=== PATIENT | female | born 1985 | race Caucasian/White ===

== ENCOUNTER 2023-08-19 01:44 | Inpatient (IN) ==
[2023-08-19] MEDS ORDERED: LIDOCAINE 1% LOCAL 20 ML VIAL INFIL PRN (02:14)
--- NOTE | 2023-08-19 02:20 | History & Physical Report ---
Date of Service August 19, 2023 Assessment & Plan (1) GBS (group B Streptococcus carrier), +RV culture, currently : (2) Gestational diabetes mellitus (GDM): Plan 38 yo at 40 4/7 wga presents in labor VSS - BP noted, pt very painful, will get labs w/ admit labs Fetus cat 1 Labor - SVE slightly progressed but rosalina q2-3 min so appears in labor. SSE is suspicious for rom as well. GDM - bg q4, q2 in active labor GBS+, pcn ordered desires epidural History of Present Illness Chief Complaint: ctx, ?lof Primary Care Provider: Kayli Tuttle MD 38 yo at 40 4/7 wga presents with ctx increasing in frequency and intensity. Had membranes stripped in office today. Was rosalina q5-6 min, Noted gush of fluid around 1230-1am and ctx worsened after that. Now q2-3 and much more uncomfortable. +FM; denies VB PNI: A1GDM GBS+ AMA Past ACUTE CARE ASSISTANT Hx: G1 2021 sab G2 current regular cycles denies hx stis Allergies Allergy/AdvReac Type Severity Reaction Status Date / Time No Known Drug Allergies Allergy Unknown Verified 08/19/23 02:14 Home Medications Medication Instructions Recorded Confirmed Type vit 168-iron 27 mg-folic 1 cap PO DAILY 12/30/22 08/19/23 History acid 800 mcg-omega3 235 mg capsule (One-A-Day -1) albuterol sulfate 90 mcg/actuation 1 inh inhalation QID PRN shortness 04/04/23 08/19/23 Rx aerosol inhaler of breath or wheezing #8.5 grams ascorbic acid (vitamin C) 500 mg 500 mg PO DAILY 04/04/23 08/19/23 History capsule RSV vac, preF A and preF B(PF) 120 0.5 ml IM ONCE #1 ea 06/23/23 08/18/23 Rx mcg/0.5 mL IM solution (Abrysvo) lancets 33 gauge (OneTouch Delica #150 ea 07/14/23 08/18/23 Rx Plus Lancet) blood-glucose meter (OneTouch #1 ea 07/18/23 08/18/23 Rx Verio Reflect kit) Patient History Medical History Well woman exam with routine gynecological exam Low grade squamous intraepithelial lesion (LGSIL) on cervical Pap smear BCP ( control pills) initiation Vaginal candidiasis Urinary tract infection Metrorrhagia Dyslipidemia Cervical dysplasia Bacterial vaginosis ADHD Mild intermittent asthma LGSIL on Pap smear of cervix Anemia Surgical History S/P dilatation and curettage S/P wisdom tooth extraction No pertinent past surgical history Family History (Updated 04/04/23 @ 08:09 by ELDA Vincent) Grandmother (Paternal) Colorectal cancer Family/Other Myocardial infarction Other Dyslipidemia Hypertension Thyroid disorder Denies family history of Ovarian cancer Prostate cancer Breast cancer Social History (Updated 04/04/23 @ 08:10 by ELDA Vincent) Smoking Status: Never smoker Second Hand Exposure: No; Do You Dip or Chew Tobacco: No; Hx Alcohol Use: Yes (socially) Hx Substance Use: No Preferred Language: Croatian Visual Impairment: No Limitations marital status: Single marital status details: Ben (45) [phone] Current Living Situation: Significant Other Current Living Situation Comment: lives with FOB, no pets 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 Feels Safe at Home: Yes Childhood Exposure to Second-Hand Smoke: No Dental Care, Regularly: Yes Physical Activity Frequency: 5-6 Times per Week Seatbelt Use: always Sunscreen Use: Yes Physical Exam Genitourinary: Manual OB Exam: + cervical dilation (4-5), + cervical effacement 70% and + station -2 OB Exam Monitor Tracing: + external FHT monitor used, + external uterine monitor used (q2-3) and + category I SSE neg pooling, nitrazine equiv, ferning seen Results & Data Vital Signs (Past 12 Hours) Vital Signs Pulse BP 08/19/23 02:02 86 145/91 H Laboratory Results OB Labs: Blood Type A Positive 01/05/23 Antibody Screen NEGATIVE 01/05/23 Hemoglobin 13.9 g/dl (12.0-16.0) 06/02/23 Hematocrit 42.2 % (37.0-47.0) 06/02/23 Mean Corpuscular Volume 86.1 fL (80.0-100.0) 01/05/23 Platelet Count 196 K/uL (130-400) 01/05/23 Rubella IgG Antibody Immune (Immune) 01/05/23 Rapid Plasma Reagin Nonreactive (Nonreactive) 01/05/23 Hepatitis B Surface Antigen. NON-REACTIVE (NON-REACTIVE) 01/05/23 Hepatitis C Antibody (EIA) NON-REACTIVE (NON-REACTIVE) 01/05/23 HIV (1&2) Ag and Ab Confirmation NON-REACTIVE (NON-REACTIVE) 01/05/23 Glucose 1 Hour 50 gm Load 181 mg/dl (70-130) H 03/01/23 Maternal Serum Alpha Fetoprotein 47.7 ng/mL 03/01/23 OB Optional Labs: Chlamydia trachomatis RNA Not Detected (NotDetected) 01/05/23 Neisseria gonorrhoeae RNA Not Detected (NotDetected) 01/05/23 Thyroid Stimulating Hormone (TSH) 2.449 uIu/ml (0.300-4.500) 04/07/23 Alpha Fetoprotein Triple Screen SEE NOTE 03/01/23 Labs Reviewed: afp neg--[facility] panorama low risk--[facility] Horizon 14 neg--[facility] GBS+ Diagnostic Findings 07/21/22 EFW 51%, posterior placenta Coding Level of Care Code None Diagnoses GBS (group B Streptococcus carrier), +RV culture, currently O99.820 Gestational diabetes mellitus (GDM) O24.419
[2023-08-19] MEDS: LACTATED RINGER'S 1,000 ML IV PRN (02:34)
[2023-08-19] MEDS: PENICILLIN GK 6 MU in DEXTROSE 5% 250 ML IV STA (02:44)
[2023-08-19 02:47] LABS: Hematocrit (blood only) 40.5 % (37.0-47.0); Hemoglobin 13.9 g/dl (12.0-16.0); Mean Corpuscular Hemoglobin 29.3 pg (25.0-34.0); Mean Corpuscular Hgb Conc 34.3 g/dL (32.0-36.0); Mean Corpuscular Volume 85.4 fL (80.0-100.0); Mean Platelet Volume 10.5 fL (9.4-12.4); Platelet Count 175 K/uL (130-400); RDW Standard Deviation 43.2 fL (36.4-46.3); Red Blood Count 4.74 M/uL (4.20-5.40); White Blood Count 10.06 K/ul (4.8-10.8)
[2023-08-19 02:59] LABS: Albumin Globulin Ratio 1.3 (0.9-2); Albumin Level 3.8 gm/dl (3.4-5.0); BUN Creatinine Ratio 12.7 (10-20); Bilirubin,Total 0.5 mg/dl (0.2-1.0); Est GFR (African American) 81.4 ml/min; Est GFR (Non-African American) 70.2 ml/min; Potassium 3.9 mmol/L (3.5-5.1); Total Protein 6.8 gm/dl (6.0-8.3)
[2023-08-19] MEDS ORDERED: NALOXONE HCL 1 MG in SODIUM CHLORIDE 0.9% 1,000 ML IV PRN (03:13)
[2023-08-19] MEDS ORDERED: NALBUPHINE HCL 5 MG in SYRINGE 0 ML IV PRN (03:13)
[2023-08-19] MEDS ORDERED: NALOXONE HCL 0.4 MG/1 ML VIAL/CARP IV PRN (03:13)
[2023-08-19] MEDS ORDERED: SODIUM CHLORIDE 0.9% PF INJ 10 ML VIAL EPI PRN (03:13)
[2023-08-19] MEDS ORDERED: fentaNYL citrate PF 100 MCG/2 ML VIAL EPI PRN (03:13)
[2023-08-19] MEDS ORDERED: ePHEDrine sulfate 50 MG/ML AMP IV PRN (03:13)
[2023-08-19] MEDS ORDERED: diphenhydrAMINE 50 MG/ML VIAL IV PRN (03:13)
[2023-08-19] MEDS ORDERED: LIDOCAINE 2% MPF LOCAL 5 ML VIAL EPI PRN (03:13)
[2023-08-19] MEDS ORDERED: fentANYL 2 MCG/ML BUPIVacaine 0.125%-NSS 100ML BAG EPI PRN (03:13)
[2023-08-19] MEDS ORDERED: ROPIVACAINE 0.5% PF 5 MG/ML 20 ML VIAL EPI PRN (03:13)
[2023-08-19] MEDS ORDERED: BUPIVACAINE 0.25% PF 30 ML VIAL EPI PRN (03:13)
--- NOTE | 2023-08-19 03:16 | Anesthesiology Consultation ---
Date of Service August 19, 2023 Assessment & Plan Chart Review Chart Review: Patient NOT seen in Pre Admission Testing and Acceptable Risk for Labor Epidural Consults Requested none ASA ASA2 Proposed Anesthesia Anesthesia Type: Labor Epidural Risk / Benefits Reviewed With: PT / POA / Parent / Guardian, Accepts Plan and Informed Consent Obtained History Height/Weight Height: 5 ft 8 in Weight: 92.986 kg Allergies Allergy/AdvReac Type Severity Reaction Status Date / Time No Known Drug Allergies Allergy Unknown Verified 08/19/23 02:14 Medications Home Medications Medication Instructions Recorded Confirmed Last Taken vit 168-iron 27 mg-folic 1 cap PO DAILY 12/30/22 08/19/23 08/18/23 21:00 acid 800 mcg-omega3 235 mg capsule (One-A-Day -1) albuterol sulfate 90 mcg/actuation 1 inh inhalation QID PRN shortness 04/04/23 08/19/23 Unknown aerosol inhaler of breath or wheezing #8.5 grams ascorbic acid (vitamin C) 500 mg 500 mg PO DAILY 04/04/23 08/19/23 08/18/23 21:00 capsule RSV vac, preF A and preF B(PF) 120 0.5 ml IM ONCE #1 ea 06/23/23 08/18/23 Unknown mcg/0.5 mL IM solution (Abrysvo) lancets 33 gauge (OneTouch Delica #150 ea 07/14/23 08/18/23 Unknown Plus Lancet) blood-glucose meter (OneTouch #1 ea 07/18/23 08/18/23 Unknown Verio Reflect kit) Active Medications Generic Name Dose Route Start Last Admin Trade Name Freq PRN Reason Stop Dose Admin Lactated Ringer's 1,000 mls @ 125 mls/hr 08/19/23 02:14 08/19/23 03:05 Lr IV 08/21/23 02:13 125 mls/hr .Q8H PRN Infusion L&D Protocol Protocol NPO Date Last Intake of Fluids: 08/18/23 Time Last Intake of Fluids: 11:00 Date Last Intake of Solids: 08/18/23 Time Last Intake of Solids: 19:30 Past Medical History Medical History Well woman exam with routine gynecological exam Low grade squamous intraepithelial lesion (LGSIL) on cervical Pap smear BCP ( control pills) initiation Vaginal candidiasis Urinary tract infection Metrorrhagia Dyslipidemia Cervical dysplasia Bacterial vaginosis ADHD Mild intermittent asthma LGSIL on Pap smear of cervix Anemia Exercise / Class Metabolic Activity II 4-5 Yardwork/Stairs/Walk up hill Past Family History Family History (Updated 04/04/23 @ 08:09 by ELDA Vincent) Grandmother (Paternal) Colorectal cancer Family/Other Myocardial infarction Other Dyslipidemia Hypertension Thyroid disorder Denies family history of Ovarian cancer Prostate cancer Breast cancer Past Surgical History Surgical History S/P dilatation and curettage S/P wisdom tooth extraction No pertinent past surgical history Past Anesthesia History No Hx of Anesthesia Complications and No Family Hx of Anesthesia Complications History of PONV No Hx of PONV and No Hx of Motion Sickness Social History Smoking Status: Never smoker Do You Dip or Chew Tobacco: No Hx Alcohol Use: No Hx Substance Use: No substance use type: does not use Review of Systems ROS Unobtainable: All systems reviewed & are unremarkable except as noted in HPI & below Physical Exam Vital Signs Last Vital Signs Temp 36.7 C 08/19/23 02:16 Pulse 86 08/19/23 02:16 Resp 18 08/19/23 02:16 BP 145/91 H 08/19/23 02:16 ENMT Mouth: no TMJ abnormality Thyromental Distance: > or= 3.5 Finger Breadths Mallampati Class: II Neck normal visual inspection and trachea midline; neck extension not limited Respiratory normal respiratory effort Auscultation: lungs clear to auscultation bilaterally Cardiovascular Rate/Rhythm: regular rate and regular rhythm Heart Sounds: no murmur Musculoskeletal Spine: normal cervical ROM Extremities: full ROM of extremities Neurologic moves all extremities Psychiatric Orientation: alert and oriented x 3 Testing Laboratory Results 08/19/23 02:23 08/19/23 02:23
[2023-08-19] MEDS: fentaNYL citrate PF 100 MCG/2 ML VIAL ONE (03:47)
[2023-08-19] MEDS: fentANYL 2 MCG/ML BUPIVacaine 0.125%-NSS 100ML BAG ONE (03:47)
[2023-08-19] MEDS: LIDOCAINE 2%/EPINEPHRINE 1:200,000 20 ML PF ONE (03:48)
[2023-08-19] MEDS: BUPIVACAINE 0.25% PF 30 ML VIAL ONE (03:48)
[2023-08-19] MEDS: PENICILLIN GK 3 MU in DEXTROSE 5% 100 ML IV PRN (06:15)
[2023-08-19] MEDS: OXYTOCIN 30 UNITS/NSS 30 UNITS/500 ML BAG IV PRN (08:10)
--- NOTE | 2023-08-19 08:33 | Delivery Summary ---
Vaginal Delivery Summary Date of Service August 19, 2023 Vaginal Delivery Summary and 2nd Degree LAC PREOPERATIVE DIAGNOSIS: 1. Single intrauterine at 40 4/7 wga 2. Labor 3. A1GDM 4. GBS+ POSTOPERATIVE DIAGNOSIS: 1. Single intrauterine at 40 4/7 wga 2. Labor 3. A1GDM 4. GBS+ 5. Delivered PROCEDURE: 1. Normal spontaneous vaginal delivery. SURGEON: Candy Arteaga MD ANESTHESIA: Epidural. ESTIMATED BLOOD LOSS: 500 mL (majority from sulcal tear) FLUIDS: Continuous LR. URINE OUTPUT: None. COMPLICATIONS: None. CONDITION: Stable. INDICATIONS: 38 yo at 40 4/7 wga presented for evaluation due to contractions and ROM. She was 4-5cm on admission. Penicillin was started for GBS+ status. She received an epidural for pain control. She quickly progressed to complete and desired to push FINDINGS: A viable male , weight pending with Apgars of 8 and 9 at 1 and 5 minutes respectively. SPECIMEN: Cord blood OPERATIVE REPORT: The patient progressed to 10 cm, 100% effaced and +2 station, pushed over intact perineum with anesthesia to deliver a viable male infant, weight and Apgars as above. Head of delivered in RONALDO position. No nuchal cord was present. Body and shoulders were delivered without difficulty. was delivered to maternal abdomen and nursing staff. Delayed cord clamping was performed for 60 seconds. Cord was clamped and cut. Cord blood was obtained. Placenta delivered spontaneously intact with 3-vessel cord. IV oxytocin and fundal massage were given for excellent hemostasis. Vagina, cervix, perineum, and placenta were inspected. A right sulcal tear with arterial bleed was noted and repaired using 3-0 vicryl. Second degree was also repaired using 3-0 vicryl in the usual fashion. There was excellent hemostasis. Sponge and needle counts correct x2. No sponges were left behind. Mother and stable in immediate period. MNP Vaginal Delivery Charge Vaginal Delivery Codes: 98311 global code for the antepartum, delivery, and post- Delivery Type Details: and 2nd Degree LAC
[2023-08-19] MEDS ORDERED: HYDROCORTISONE ACETATE 25 MG SUPP PR PRN (08:57)
[2023-08-19] MEDS ORDERED: bisacodyL 10 MG SUPP PR PRN (08:57)
[2023-08-19] MEDS ORDERED: OXYTOCIN 30 UNITS/NSS 30 UNITS/500 ML BAG IV PRN (08:57)
--- NOTE | 2023-08-19 09:49 | Anesthesia Procedure Note ---
Date of Service August 19, 2023 Anesthesia Post Epidural Note Vital Signs Vital Signs: Temp Pulse Resp BP Pulse Ox 99.0 F 118 H 20 139/93 97 08/19/23 07:10 08/19/23 09:45 08/19/23 09:30 08/19/23 09:45 08/19/23 08:45 Pain Intensity Abdomen: Pain Intensity: 0 Notes Mental Status: alert / awake / arousable and participated in evaluation Nausea / Vomiting: adequately controlled Pain: adequately controlled Airway Patency, RR, SpO2: stable & adequate BP & HR: stable & adequate Hydration State: stable & adequate Neuraxial Anesthesia: was administered and sensory block is resolving Anesthetic Complications: no major complications apparent and Pt Satisfied with anesthetic care Epidural: Removed without complications and With tip intact
[2023-08-19] MEDS: IBUPROFEN 600 MG TAB PO PRN (10:09)
[2023-08-19] MEDS: ePHEDrine sulfate 50 MG/ML AMP ONE (10:10)
[2023-08-19] MEDS: SODIUM CHLORIDE 0.9% PF INJ 10 ML VIAL ONE (10:10)
[2023-08-19] MEDS: BENZOCAINE 20% SPRY 85 APPLN/85 GM CAN EXT PRN (10:11)
[2023-08-19] MEDS: ACETAMINOPHEN 325 MG TAB PO PRN (12:25)
[2023-08-19] MEDS: DOCUSATE SODIUM 100 MG CAP PO SCH (20:44)
[2023-08-19] MEDS: BUPIVACAINE 0.25% PF 30 ML VIAL EPI STA (21:42)
[2023-08-19] MEDS: DIPHTHER/TETAN/PERTUS Vaccine (Tdap, Adol/Adult) 0.5mL IM ONE (21:42)
[2023-08-19] MEDS: fentaNYL citrate PF 100 MCG/2 ML VIAL EPI STA (21:42)
[2023-08-19] MEDS: LIDOCAINE 2%/EPINEPHRINE 1:200,000 20 ML PF EPI STA (21:43)
[2023-08-19] MEDS: SODIUM CHLORIDE 0.9% PF INJ 10 ML VIAL EPI STA (21:43)
--- NOTE | 2023-08-20 06:32 | Obstetrical Progress Note ---
Date of Service August 20, 2023 day #1 patient is doing well minimal bleeding no extremity pain she was group B strep positive will likely need to stay till tomorrow Assessment & Plan (1) GBS (group B Streptococcus carrier), +RV culture, currently : day #1 doing well encourage ambulation likely discharge tomorrow Physical Exam Constitutional WD/WN, vitals as above well developed and well nourished Respiratory normal respiratory effort, lungs clear to auscultation normal respiratory effort Cardiovascular RRR, no murmur, no edema Gastrointestinal (Abdomen) normal bowel sounds, soft, nontender, no hepatosplenomegaly Results & Data Vital Signs (Past 12 Hours) Vital Signs Temp Pulse Resp BP Pulse Ox O2 Del Method 08/20/23 03:05 98.2 F 82 18 118/71 97 Room Air 08/19/23 22:58 97.9 F 95 H 20 138/83 97 Room Air 08/19/23 20:15 99.0 F 96 H 18 125/80 97 Room Air
[2023-08-20 07:51] LABS: Hematocrit (blood only) 26.3 % (37.0-47.0); Mean Corpuscular Hemoglobin 29.5 pg (25.0-34.0); Mean Corpuscular Hgb Conc 34.2 g/dL (32.0-36.0); Mean Corpuscular Volume 86.2 fL (80.0-100.0); Mean Platelet Volume 10.5 fL (9.4-12.4); Platelet Count 133 K/uL (130-400); RDW Coefficient of Variation 14.7 % (11.5-14.5); RDW Standard Deviation 45.8 fL (36.4-46.3); Red Blood Count 3.05 M/uL (4.20-5.40); White Blood Count 11.67 K/ul (4.8-10.8)
[2023-08-20] MEDS: PRENATAL VITAMIN 1 TAB PO SCH (08:18)
[2023-08-20] MEDS: bisacodyL 5 MG TABEC PO SCH (20:32)
--- NOTE | 2023-08-21 07:17 | Obstetrical Progress Note ---
Date of Service <Sherrie Berg MD - Last Filed: 08/21/23 07:17> August 21, 2023 Assessment & Plan <Sherrie Berg MD - Last Filed: 08/21/23 07:17> (1) Encounter for assessment: Plan Patient with the above mentioned history and findings was evaluated at bedside and found awake, alert, oriented in all spheres, afebrile, and in no acute distress. Vital signs showed no fever and blood pressures remained stable. Her blood type is A pos and today's hemoglobin is adequate at 9 g/dL. Patient denies symptoms of anemia such as lightheadedness, dizziness, palpitations, or tachycardia. Serologies are positive for GBS (treated intrapartum)and patient is Rubella immune. Overall, patient is doing well clinically and meeting the desired milestone for her course. Therefore, will discharge patient today. Patient was cou nselled on discharge instructions. She is to make an appointment with her OB for 6 weeks after discharge for follow up evaluation. All questions were answered. <Samson Jorgensen MD, FACOG - Last Filed: 08/21/23 07:33> (1) Encounter for assessment: Subjective <Sherrie Berg MD - Last Filed: 08/21/23 07:17> Evelin is a 38 y/o female who is now PPD # 2 following at 40 4/7 weeks. Reports feeling well overall this morning. Refers mild abdominal cramping & 2/10 pain well managed on analgesics. Voiding spontaneously. Tolerating meals overnight and able to ambulate some. Passing gas but no bm yet. Some persistent lochia with some improvement this morning. . Constitutional: no fever, no chills or no sweats Denies shortness of breath or difficulty breathing Cardiovascular: no chest pain or no palpitations Breast: no breast pain Genitourinary (female): no dysuria Neurologic: no headache(s) Denies changes in vision Physical Exam <Sherrie Berg MD - Last Filed: 08/21/23 07:17> General: Alert. Oriented to person, time, and place. Afebrile. No acute distress. Cardiac: Regular rate and rhythm, no murmurs/rubs/gallops. Respiratory: Clear to auscultation bilaterally a/p, no wheezes/rales/rhonchi. No increased work of breathing. Symmetrical chest rise. No respiratory distress. Abdomen: Soft, nontender, nondistended. Bowel sounds present. Uterus: Uterine fundus firm, non tender, and palpable below umbilicus. Psych: Euthymic affect. Mood and affect congruence. Regular speech rate and content. Results & Data <Sherrie Berg MD - Last Filed: 08/21/23 07:17> Vital Signs (Past 12 Hours) Vital Signs Temp Pulse Resp BP Pulse Ox O2 Del Method 08/20/23 23:01 37 C 90 18 113/68 97 Room Air Supervising Physician <Samson Jorgensen MD, FACOG - Last Filed: 08/21/23 07:33> Co-Signing Physician Notes Resident Physician Supervision Note: I was present with [Name of resident] during the history and exam. I discussed the case with the resident and agree with the findings and plan as documented in the note. Any exceptions or clarifications are listed here: [None] Documented By: Samson Jorgensen MD, FACOG
== END 2023-08-21 13:22 | disposition home or self-care (01) | DRG 807 ==
LOC: OPB 01:44 → 4S1 01:48 → 4E2 12:12

== ENCOUNTER 2025-04-28 07:51 | Inpatient (IN) ==
[2025-04-28] MEDS ORDERED: CALCIUM CARBONATE 500 MG CHEWABLE TAB PO PRN (07:56)
[2025-04-28] MEDS ORDERED: LIDOCAINE 1% LOCAL 20 ML VIAL INFIL PRN (07:56)
[2025-04-28] MEDS ORDERED: OXYTOCIN 30 UNITS/NSS 30 UNITS/500 ML BAG IV PRN ×2 (07:56→20:04)
[2025-04-28] MEDS ORDERED: ACETAMINOPHEN 325 MG TAB PO PRN ×2 (07:56→20:04)
--- NOTE | 2025-04-28 07:59 | History & Physical Report ---
Date of Service April 28, 2025 Assessment & Plan (1) Encounter for induction of labor: (2) Large for gestational age fetus affecting management of mother: Plan admit, pcn for gbs positive, pitocin for iol. arom when appropriate, epidural on demand, fetus category one. anticipate . discussed will have to push baby out on own. will not instrument for delivery. Admission and Anticipated Discharge Date Admission Date: April 28, 2025 History of Present Illness Chief Complaint: iol Primary Care Provider: Kayli Burch MD Patient is a 40yowf with iup at 30 / here for iol for lga baby. +fm, no lof/vb. Occsaional contraction. and Delivery Plans GDM w/prior - wants to retest at 16wks *Passed 16wk and 28w GTT AMA Weekly NST's @ 36 weeks RSV Vaccine Last Anatomy EFW 90% 36 week growth --EFW >98% AC >98% IOL LGA 04/28 GBS positive OB Labs: Blood Type A Positive 10/18/24 Antibody Screen NEGATIVE 10/18/24 Hgb 12.1 g/dl (12.0-16.0) 02/07/25 Hct 35.9 % (37.0-47.0) L 02/07/25 MCV 83.3 fL (80.0-100.0) 09/27/24 Plt Count 254 K/uL (130-400) 09/27/24 Rubella IgG Antibody Immune (Immune) 09/27/24 RPR Nonreactive (Nonreactive) 01/05/23 Treponema pallidum Ab Negative (Negative) 02/07/25 Hep Bs Antigen Negative (Negative) 09/27/24 Hep Bs Antigen NON-REACTIVE (NON-REACTIVE) 01/05/23 Hepatitis C Antibody Negative (Negative) 09/27/24 Hepatitis C Ab (EIA) NON-REACTIVE (NON-REACTIVE) 01/05/23 HIV 1&2 Ab/P24 Ag 4thGn Negative (Negative) 09/27/24 HIV (1&2) Ag & Ab Conf NON-REACTIVE (NON-REACTIVE) 01/05/23 Glucose 1 Hr 50 gm 111 mg/dl (70-130) 02/07/25 Maternal Serum AFP 43.3 ng/mL 11/22/24 OB Optional Labs: Chlamydia trachomatis RNA Not Detected (NotDetected) 09/27/24 Neisseria gonorrhoeae RNA Not Detected (NotDetected) 09/27/24 Thyroid Stimulating Hormone (TSH) 2.449 uIu/ml (0.300-4.500) 04/07/23 Alpha Fetoprotein Triple Screen SEE NOTE 11/22/24 Labs Reviewed: Horizon 14 neg last preg - sln neg afp low risk panorama. gbs positve Allergies Allergy/AdvReac Type Severity Reaction Status Date / Time No Known Drug Allergies Allergy Unknown Verified 04/23/25 15:32 Home Medications Medication Instructions Recorded Confirmed Type 21-iron fu-folic acid PO 09/18/24 04/23/25 History [ Complete] sertraline 100 mg tablet 100 mg PO DAILY #90 tabs 04/04/25 04/23/25 Rx albuterol sulfate 90 mcg/actuation 1 inh inhalation DAILY PRN 04/28/25 04/28/25 History aerosol inhaler shortness of breath or wheezing Patient History Medical History History of chicken pox Mild depression Generalized anxiety disorder Mild intermittent asthma Incomplete significant acute hemorrhage Kidney stone Low grade squamous intraepithelial lesion (LGSIL) on cervical Pap smear Dyslipidemia Cervical dysplasia Bacterial vaginosis Anemia Surgical History S/P dilatation and curettage S/P wisdom tooth extraction Family History Grandmother (Paternal) Colorectal cancer Family/Other Myocardial infarction Other Dyslipidemia Hypertension Thyroid disorder Denies family history of Ovarian cancer Prostate cancer Breast cancer Social History Smoking Status: Never smoker Second Hand Exposure: No; Do You Dip or Chew Tobacco: No; Hx Alcohol Use: No Hx Substance Use: No Preferred Language: Croatian Communication Ability: Effective Visual Impairment: No Limitations Scuba Instructor Required: No Beliefs That Will Affect Care: None marital status: Single marital status details: Ben Lee (47) [phone] Current Living Situation: Family and Significant Other Current Living Situation Comment: lives with FOB, child, no pets 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 Date GA wks Lbr Lgth wt Sex Type del Anes Place Del Prov ? Comment 05/04/22 9 Aborted-Spontaneous D&C 08/19/23 40 8lbs 3.9ozs M E pidural [facility] Dr. 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
[2025-04-28 08:18] LABS: Hematocrit (blood only) 38.8 % (37.0-47.0); Hemoglobin 13.3 g/dL (12.0-16.0); Mean Corpuscular Hemoglobin 27.5 pg (25.0-34.0); Mean Corpuscular Volume 80.2 fL (80.0-100.0); Platelet Count 202 K/uL (130-400); RDW Standard Deviation 43.1 fL (36.4-46.3); Red Blood Count 4.84 M/uL (4.20-5.40); White Blood Count 8.06 K/ul (4.8-10.8)
[2025-04-28 08:39] LABS: Alanine Aminotransferase 14.0 U/L (7-52); Albumin Globulin Ratio 1.1 (0.9-2); Albumin Level 3.5 gm/dl (3.4-5.0); Alkaline Phosphatase 218.0 U/L (34-104); Anion Gap 8.0 (3-11); Bilirubin,Total 0.5 mg/dl (0.2-1.0); Blood Urea Nitrogen 13.0 mg/dl (6-23); Calcium 8.7 mg/dl (8.6-10.3); Carbon Dioxide 17.0 mmol/L (21-32); Chloride 109.0 mmol/L (98-107); Creatinine Clr Calc Pharmacy 109.3 ml/min; Globulin 3.1 gm/dl (2.5-4.0); Glucose 148.0 mg/dl (70-99(Fasting)); Potassium 3.5 mmol/L (3.5-5.1); Sodium 134.0 mmol/L (136-145); Total Protein 6.6 gm/dl (6.0-8.3)
[2025-04-28] MEDS: PENICILLIN GK 6 MU in DEXTROSE 5% 250 ML IV STA (09:13)
[2025-04-28] MEDS: LACTATED RINGER'S 1,000 ML IV PRN (09:13)
[2025-04-28] MEDS: OXYTOCIN 30 UNITS/NSS 30 UNITS/500 ML BAG IV PRN (09:17)
[2025-04-28] MEDS: PENICILLIN GK 3 MU in DEXTROSE 5% 100 ML IV PRN (12:59)
--- NOTE | 2025-04-28 14:38 | Anesthesiology Consultation ---
Date of Service April 28, 2025 Assessment & Plan Chart Review Chart Review: Acceptable Risk for Labor Epidural Consults Requested none History Height/Weight Height: 5 ft 8 in Weight: 92 kg Allergies Allergy/AdvReac Type Severity Reaction Status Date / Time No Known Drug Allergies Allergy Unknown Verified 04/23/25 15:32 Medications Home Medications Medication Instructions Recorded Confirmed Last Taken 21-iron fu-folic acid 1 tab PO DAILY 09/18/24 04/28/25 04/27/25 [ Complete] sertraline 100 mg tablet 100 mg PO DAILY #90 tabs 04/04/25 04/28/25 04/27/25 albuterol sulfate 90 mcg/actuation 1 inh inhalation DAILY PRN 04/28/25 04/28/25 Unknown aerosol inhaler shortness of breath or wheezing Active Medications Generic Name Dose Route Start Last Admin Trade Name Freq PRN Reason Stop Dose Admin Oxytocin 30 units in 500 mls @ 16 mls/hr 04/28/25 07:56 04/28/25 14:15 Pitocin 30 Units/Nss IV 04/30/25 07:55 0.96 units/hr .Q24H PRN 16 mls/hr Labor Induction/Augmentation Titration Protocol 0.96 UNITS/HR Lactated Ringer's 1,000 mls @ 125 mls/hr 04/28/25 07:56 04/28/25 14:05 Lr IV 04/30/25 07:55 999 mls/hr .Q8H PRN Infusion L&D Protocol Protocol Penicillin G Potassium 3 mu/ 106 mls @ 100 mls/hr 04/28/25 10:57 04/28/25 14:00 Dextrose IV 05/08/25 10:56 Infused Q4H PRN Infusion GBS(+) Until Delivery Past Medical History Medical History History of chicken pox Mild depression Generalized anxiety disorder Mild intermittent asthma Incomplete significant acute hemorrhage Kidney stone Low grade squamous intraepithelial lesion (LGSIL) on cervical Pap smear Dyslipidemia Cervical dysplasia Bacterial vaginosis Anemia Past Family History Family History Grandmother (Paternal) Colorectal cancer Family/Other Myocardial infarction Other Dyslipidemia Hypertension Thyroid disorder Denies family history of Ovarian cancer Prostate cancer Breast cancer Past Surgical History Surgical History S/P dilatation and curettage S/P wisdom tooth extraction Social History Smoking Status: Never smoker Do You Dip or Chew Tobacco: No Hx Alcohol Use: No Hx Substance Use: No substance use type: does not use Physical Exam Vital Signs Last Vital Signs Temp 36.7 C 04/28/25 12:00 Pulse 76 04/28/25 14:36 Resp 20 04/28/25 13:00 BP 139/88 04/28/25 14:36 Testing Laboratory Results 04/28/25 08:04 04/28/25 08:04 Blood Type A Positive 04/28/25 08:04 Antibody Screen NEGATIVE 04/28/25 08:04
[2025-04-28] MEDS ORDERED: NALOXONE HCL 1 MG in SODIUM CHLORIDE 0.9% 1,000 ML IV PRN (14:39)
[2025-04-28] MEDS ORDERED: SODIUM CHLORIDE 0.9% PF INJ 10 ML VIAL EPI PRN (14:39)
[2025-04-28] MEDS ORDERED: NALBUPHINE HCL INJ 10 MG/ML AMP IV PRN (14:39)
[2025-04-28] MEDS ORDERED: fentANYL 2 MCG/ML BUPIVacaine 0.125%-NSS 100ML BAG EPI PRN (14:39)
[2025-04-28] MEDS ORDERED: BUPIVACAINE 0.25% PF 30 ML VIAL EPI PRN (14:39)
[2025-04-28] MEDS ORDERED: NALOXONE HCL 0.4 MG/1 ML VIAL/CARP IV PRN (14:39)
[2025-04-28] MEDS ORDERED: diphenhydrAMINE 50 MG/ML VIAL IV PRN (14:39)
[2025-04-28] MEDS ORDERED: ROPIVACAINE 0.5% PF 5 MG/ML 20 ML VIAL EPI PRN (14:39)
[2025-04-28] MEDS ORDERED: LIDOCAINE 2% MPF LOCAL 5 ML VIAL EPI PRN (14:39)
[2025-04-28] MEDS: fentANYL 2 MCG/ML BUPIVacaine 0.125%-NSS 100ML BAG ONE (15:05)
[2025-04-28] MEDS: LIDOCAINE 2%/EPINEPHRINE 1:200,000 20 ML PF ONE (15:23)
[2025-04-28] MEDS: BUPIVACAINE 0.25% PF 30 ML VIAL ONE (15:24)
[2025-04-28] MEDS: SODIUM CHLORIDE 0.9% PF INJ 10 ML VIAL ONE (15:24)
--- NOTE | 2025-04-28 16:06 | Labor Progress Brief Note ---
Date of Service April 28, 2025 Subjective comfortable Assessment & Plan (1) Large for gestational age fetus affecting management of mother: (2) Encounter for induction of labor: Plan continue current management. fetus overall category one. anticipate . Admission and Anticipated Discharge Date Admission Date: April 28, 2025 Physical Exam Physical Exam: cx--/-2 arom--clear toco--q2-4min efm--130s with mod variability, accels to 150s, after rom had a bit of a decel , baby really moving. resolved to 125. Results & Data Vital Signs (Past 12 Hours) Vital Signs Temp Pulse Resp BP Pulse Ox 04/28/25 15:59 97 04/28/25 15:59 121 H 04/28/25 15:59 112/58 L 04/28/25 15:54 98 04/28/25 15:54 91 H 04/28/25 15:54 118/64 04/28/25 15:49 97 04/28/25 15:49 96 H 04/28/25 15:49 114/63 04/28/25 15:44 98 04/28/25 15:44 94 H 04/28/25 15:44 113/75 04/28/25 15:40 96 H 04/28/25 15:40 108/74 04/28/25 15:39 98 04/28/25 15:39 97 H 04/28/25 15:34 98 04/28/25 15:34 102 H 04/28/25 15:34 96 H 04/28/25 15:34 114/70 04/28/25 15:29 99 04/28/25 15:29 97 H 04/28/25 15:29 95 H 04/28/25 15:29 113/66 04/28/25 15:27 103 H 04/28/25 15:27 119/68 04/28/25 15:25 106 H 04/28/25 15:25 124/67 04/28/25 15:24 99 04/28/25 15:24 97 H 04/28/25 15:23 96 H 04/28/25 15:23 125/72 04/28/25 15:21 106 H 04/28/25 15:21 119/67 04/28/25 15:19 99 04/28/25 15:19 89 04/28/25 15:19 102 H 04/28/25 15:19 119/73 04/28/25 15:17 95 H 04/28/25 15:17 121/70 04/28/25 15:15 90 04/28/25 15:15 115/63 04/28/25 15:14 98 04/28/25 15:14 92 H 04/28/25 15:13 93 H 04/28/25 15:13 111/61 04/28/25 15:11 101 H 04/28/25 15:11 108/62 04/28/25 15:09 97 04/28/25 15:09 109 H 04/28/25 15:09 119/67 04/28/25 15:07 96 H 04/28/25 15:07 105/62 04/28/25 15:05 94 H 04/28/25 15:05 126/62 04/28/25 15:04 98 04/28/25 15:04 93 H 04/28/25 15:03 90 04/28/25 15:03 145/87 H 04/28/25 15:01 84 04/28/25 15:01 143/93 H 04/28/25 14:59 97 04/28/25 14:59 86 04/28/25 14:54 98 04/28/25 14:54 80 04/28/25 14:49 98 04/28/25 14:49 85 04/28/25 14:44 97 04/28/25 14:44 76 04/28/25 14:36 76 04/28/25 14:36 139/88 04/28/25 14:00 18 04/28/25 14:00 36.7 C 18 04/28/25 13:00 20 04/28/25 13:00 20 04/28/25 12:00 18 04/28/25 12:00 36.7 C 18 04/28/25 11:59 75 04/28/25 11:59 130/84 04/28/25 10:21 82 04/28/25 10:21 135/84 04/28/25 10:20 18 04/28/25 10:20 36.6 C 18 04/28/25 09:00 18 04/28/25 09:00 18 04/28/25 08:25 117 H 04/28/25 08:25 130/91 04/28/25 07:59 36.6 C 18 04/28/25 07:58 36.6 C 114 H 18 144/95 H Coding Level of Care Code None Diagnoses Large for gestational age fetus affecting management of mother O36.60X0 Encounter for induction of labor Z34.90
[2025-04-28] MEDS: BUPIVACAINE 0.25% PF 30 ML VIAL EPI STA (16:43)
[2025-04-28] MEDS: LIDOCAINE 2%/EPINEPHRINE 1:200,000 20 ML PF EPI STA (16:43)
[2025-04-28] MEDS: SODIUM CHLORIDE 0.9% PF INJ 10 ML VIAL EPI STA (16:44)
--- NOTE | 2025-04-28 19:54 | Delivery Summary ---
Vaginal Delivery Summary Date of Service April 28, 2025 Vaginal Delivery Summary and 2nd Degree LAC (excision of hymenal remnant) Pre-operative Diagnosis: at 39 weeks LGA Post-operative Diagnosis: same Procedure: pitocin induction epidural arom second degree laceration repair hymenal tag excision QBL: 417cc Anesthesia: epidural Procedure: The patient presented to labor and delivery for iol for lga. Pitocin IOL. then got epidural and arom for copious clear. She then progressed to c/c/+1. The patient pushed for 2 contractions to deliver a viable male infant in timothy position. The anterior shoulder was easily delivered and the rest of the was then delivered without difficulty. The baby was vigorous. The nose and mouth were bulb suctioned and the infant was placed in the maternal abdomen for drying and attention. Cord was clamped and cut at one minute of life. Cord blood and segment obtained. Placenta delivered spontaneous, intact with a three vessel cord. Cervix/sulci/rectum were intact. A second degree perineal laceration was repaired in the normal standard fashion. A hymenal remnant was excised with scissors and the edges reapproximated with 4-0 vicryl. Hemostasis obtained with dilute pitocin and fundal massage. Apgars were 8/9. Mother and baby doing well at the end of the delivery. [facility] Vaginal Delivery Charge Delivery Type Details: and 2nd Degree LAC (excision of hymenal remnant)
[2025-04-28] MEDS ORDERED: HYDROCORTISONE ACETATE 25 MG SUPP PR PRN (20:04)
--- NOTE | 2025-04-28 20:43 | Anesthesia Procedure Note ---
Date of Service April 28, 2025 Anesthesia Post Epidural Note Vital Signs Vital Signs: Temp Pulse Resp BP Pulse Ox 36.7 C 97 H 18 151/89 H 96 04/28/25 20:06 04/28/25 20:36 04/28/25 20:06 04/28/25 20:36 04/28/25 19:24 Pain Intensity Lower Abdomen: Pain Intensity: 8 Bilateral Episiotomy/Laceration: Pain Intensity: 3 Notes Mental Status: alert / awake / arousable Nausea / Vomiting: adequately controlled Pain: adequately controlled Airway Patency, RR, SpO2: stable & adequate BP & HR: stable & adequate Hydration State: stable & adequate Neuraxial Anesthesia: was administered and sensory block is resolving Anesthetic Complications: no major complications apparent and Pt Satisfied with anesthetic care Epidural: Removed without complications and With tip intact
[2025-04-28] MEDS: BENZOCAINE 20% SPRY 85 APPLN/85 GM CAN EXT PRN (20:57)
[2025-04-28] MEDS: IBUPROFEN 600 MG TAB PO PRN (20:57)
[2025-04-28] MEDS: DIPHTHER/TETAN/PERTUS Vaccine (Tdap, Adol/Adult) 0.5mL IM ONE (21:14)
[2025-04-28] MEDS: DOCUSATE SODIUM 100 MG CAP PO SCH (21:32)
--- NOTE | 2025-04-29 06:13 | Obstetrical Progress Note ---
Date of Service April 29, 2025 Assessment & Plan (1) examination following vaginal delivery: (2) Large for gestational age fetus affecting management of mother: (3) Elderly multigravida: Plan 40 y/o ppd #1 s/p . complicated by LGA. Feels well today. Vital signs stable Continue post- care Encourage ambulation and Pain controlled with ibuprofen Hgb stable Anticipate home discharge tomorrow with plans to follow-up with Dr. Cardona in 6 weeks Admission and Anticipated Discharge Date Admission Date: April 28, 2025 Supervising Physician Co-Signing Physician Notes Resident Physician Supervision Note: I interviewed and examined the patient. Discussed with Dr. Downs and agree with findings and plan as documented in the note. Any exceptions or clarifications are listed here: Doing well. Meeting goals. Routine care. Documented By: Rosy Cardona MD, FACOG Subjective 40 y/o ppd #1 s/p . was complicated by LGA. Ambulation: ambulating normally Voiding: no voiding problems Passing Gas:: Yes Diet Tolerance:: regular diet Lochia:: Small Feeding Type:: bottle feeding Current Pain Level: minimal, well-controlled with ibuprofen Resting comfortably this AM in NAD. Denies COBB, CP, SOB, N/V/D, LE pain/swelling. Review of Systems Review of Systems: as above Physical Exam Physical Exam: General: patient resting comfortably, NAD, non-toxic in appearance, A&Ox4, answers questions appropriately. Skin: warm, dry, intact HEENT: NC/AT, anicteric sclera, conjunctiva without injection, moist mucus membranes. Heart: +S1/S2, regular, no m/r/g Lungs: equal air entry bilaterally, no rales/rhonchi/wheezes Abd: +BS, soft, NT/ND, uterine fundus firm at umbilicus Ext: warm, no clubbing/cyanosis or edema, Nessa's neg. Neuro: no focal neurologic deficits, moving all extremities. Results & Data Vital Signs (Past 12 Hours) Vital Signs Temp Pulse Pulse Resp BP BP Pulse Ox 04/29/25 03:04 36.6 C 76 18 115/72 96 04/28/25 22:17 36.8 C 84 18 146/80 H 95 04/28/25 21:55 37.0 C 18 99 04/28/25 21:55 126 H 04/28/25 21:55 129/87 04/28/25 21:30 96 H 04/28/25 21:30 134/90 04/28/25 20:51 18 04/28/25 20:51 93 H 04/28/25 20:51 151/90 H 04/28/25 20:36 97 H 04/28/25 20:36 151/89 H 04/28/25 20:21 81 04/28/25 20:21 116/89 04/28/25 20:06 36.7 C 18 04/28/25 20:06 81 04/28/25 20:06 146/85 H 04/28/25 19:53 80 04/28/25 19:53 140/85 04/28/25 19:50 90 04/28/25 19:50 156/79 H 04/28/25 19:35 107 H 04/28/25 19:35 163/75 H 04/28/25 19:24 96 04/28/25 19:24 128 H 04/28/25 19:20 117 H 04/28/25 19:20 153/79 H 04/28/25 19:19 98 04/28/25 19:19 135 H 04/28/25 19:14 98 04/28/25 19:14 113 H 04/28/25 19:09 97 04/28/25 19:09 105 H 04/28/25 19:07 133 H 04/28/25 19:07 150/91 H 04/28/25 19:06 122 H 04/28/25 19:06 159/94 H 04/28/25 19:04 99 04/28/25 19:04 118 H 04/28/25 19:00 18 04/28/25 19:00 36.8 C 18 04/28/25 18:59 100 04/28/25 18:59 113 H 04/28/25 18:54 97 04/28/25 18:54 80 04/28/25 18:52 80 04/28/25 18:52 130/79 04/28/25 18:49 98 04/28/25 18:49 83 04/28/25 18:44 97 04/28/25 18:44 77 04/28/25 18:39 97 04/28/25 18:39 81 04/28/25 18:36 76 04/28/25 18:36 132/74 04/28/25 18:34 97 04/28/25 18:34 78 04/28/25 18:30 18 04/28/25 18:30 18 04/28/25 18:29 98 04/28/25 18:29 81 04/28/25 18:24 97 04/28/25 18:24 91 H 04/28/25 18:20 91 H 04/28/25 18:20 129/82 04/28/25 18:19 97 04/28/25 18:19 106 H 04/28/25 18:14 97 04/28/25 18:14 80 O2 Del Method 04/29/25 03:04 Room Air 04/28/25 22:17 Room Air 04/28/25 21:55 04/28/25 21:55 04/28/25 21:55 04/28/25 21:30 04/28/25 21:30 04/28/25 20:51 04/28/25 20:51 04/28/25 20:51 04/28/25 20:36 04/28/25 20:36 04/28/25 20:21 04/28/25 20:21 04/28/25 20:06 04/28/25 20:06 04/28/25 20:06 04/28/25 19:53 04/28/25 19:53 04/28/25 19:50 04/28/25 19:50 04/28/25 19:35 04/28/25 19:35 04/28/25 19:24 04/28/25 19:24 04/28/25 19:20 04/28/25 19:20 04/28/25 19:19 04/28/25 19:19 04/28/25 19:14 04/28/25 19:14 04/28/25 19:09 04/28/25 19:09 04/28/25 19:07 04/28/25 19:07 04/28/25 19:06 04/28/25 19:06 04/28/25 19:04 04/28/25 19:04 04/28/25 19:00 04/28/25 19:00 04/28/25 18:59 04/28/25 18:59 04/28/25 18:54 04/28/25 18:54 04/28/25 18:52 04/28/25 18:52 04/28/25 18:49 04/28/25 18:49 04/28/25 18:44 04/28/25 18:44 04/28/25 18:39 04/28/25 18:39 04/28/25 18:36 04/28/25 18:36 04/28/25 18:34 04/28/25 18:34 04/28/25 18:30 04/28/25 18:30 04/28/25 18:29 04/28/25 18:29 04/28/25 18:24 04/28/25 18:24 04/28/25 18:20 04/28/25 18:20 04/28/25 18:19 04/28/25 18:19 04/28/25 18:14 04/28/25 18:14
[2025-04-29 06:31] LABS: Hematocrit (blood only) 34.1 % (37.0-47.0); Hemoglobin 11.8 g/dL (12.0-16.0)
[2025-04-29] MEDS: PRENATAL VITAMIN 1 TAB PO SCH (07:15)
[2025-04-29] MEDS: SERTRALINE HCL 100 MG TABLET PO SCH (07:16)
--- NOTE | 2025-04-30 05:58 | Obstetrical Progress Note ---
Date of Service April 30, 2025 Assessment & Plan (1) examination following vaginal delivery: (2) Large for gestational age fetus affecting management of mother: (3) Elderly multigravida: Plan 40 y/o ppd #2 s/p . complicated by LGA. BPs have been elevated since delivery, overnight >140/90. Pressures were controlled during delivery and pt has no hx of HTN. Plan to start labetalol and watch BP before dc home. Continue post- care Encourage ambulation and Pain controlled with ibuprofen Hgb stable Anticipate home discharge today, dependent on repeat BPs, with plans to follow- up with Dr. Cardona in 6 weeks Admission and Anticipated Discharge Date Admission Date: April 28, 2025 Supervising Physician Co-Signing Physician Notes Resident Physician Supervision Note: I interviewed and examined the patient. Discussed with Dr. Downs and agree with findings and plan as documented in the note. Any exceptions or clarifications are listed here: pt doing well, eating, voiding, ambulating, no concerning bleeding, denies cobb or visual change no concern for worsening swelling. bps shahana sbp >150 on multiple occasions, i was never notified. this am discussed with pt and she was concerned it was like that due to her son visiting, she is planning to go home to son/family today. bp repeated in bed because bp machine could not reach chair where i wanted it taken and nursing tells me that sbp was 167. then in bed it was 144/94. I am concerned that we need to manage her bp prior to safe dc, consequences of not controlling is return to ER due to severe bps and sx of such. she agrees. start labetalol, hopefully dc home later today. abd soft ff at u nt, has not voided yet. ext nt calves. ppd #2 s/p , monitor bps, prepare for likely dc later. instructions reviewed. f/u will be monday for bp check at latest. Documented By: Caryn Zambrano MD, FACOG Subjective 40 y/o ppd #2 s/p . was complicated by LGA. Ambulation: ambulating normally Voiding: no voiding problems Passing Gas:: Yes Diet Tolerance:: regular diet Lochia:: Small Feeding Type:: bottle feeding Current Pain Level: minimal, well-controlled with ibuprofen Resting comfortably this AM in NAD. Denies COBB, CP, SOB, N/V/D, LE pain/swelling. Review of Systems Review of Systems: as above Physical Exam Physical Exam: General: patient resting comfortably, NAD, non-toxic in appearance, A&Ox4, answers questions appropriately. Skin: warm, dry, intact HEENT: NC/AT, anicteric sclera, conjunctiva without injection, moist mucus membranes. Heart: NRRR, no murmur or gallop appreciated Lungs: equal air entry bilaterally, no rales/rhonchi/wheezes Abd: +BS, soft, NT/ND, uterine fundus firm at umbilicus Ext: warm, no clubbing/cyanosis or edema, Nessa's neg. Neuro: no focal neurologic deficits, moving all extremities. Results & Data Vital Signs (Past 12 Hours) Vital Signs Temp Pulse Resp BP Pulse Ox O2 Del Method 04/29/25 20:00 36.7 C 80 20 150/89 H 96 Room Air
[2025-04-30 06:53] VITALS: RESP 16
[2025-04-30] MEDS: LABETALOL HCL 100 MG TAB PO SCH (07:25)
[2025-04-30 11:55] VITALS: BP 127/81; PULSE 81; TEMP 98.2; O2SAT 96
== END 2025-04-30 14:35 | disposition home or self-care (01) | DRG 768 ==
LOC: 4S1 07:51 → 4E2 22:28